=== PATIENT | male | born 1985 | race Caucasian/White ===

== ENCOUNTER 2016-09-01 16:24 | Emergency (ER) | payer SELFPAY ==
[~2016-09-01] VITALS: Ht 175.3 cm; Wt 75.9 kg
[2016-09-01 16:28] VITALS: BP 148/93
== END 2016-09-01 17:05 | disposition home or self-care (01) ==
LOC: ED 16:59
DX: H92.02 Otalgia, left ear (principal); H57.12 Ocular pain, left eye; F17.200 Nicotine dependence, unspecified, uncomplicated
CPT/HCPCS: 99281